=== PATIENT | female | born 1985 | race Caucasian/White ===

== ENCOUNTER 2016-10-03 20:03 | Emergency (ER) | payer MEDICAID ==
[2016-10-03 22:44] LABS: BASOPHILS 0.1 % (0-2); EOSINOPHILS 2.2 % (0-7); HEMATOCRIT 36.5 % (36.0-48.0); HEMOGLOBIN 12.2 g/dL (12-16); IMMATURE GRANULOCYTES 0.1 % (0-5); LYMPHOCYTES 27.8 % (15-50); MCH 30.9 pg (26.0-34.0); MCHC 33.4 g/dL (31.0-37.0); MCV 92.4 fL (80.0-100.0); MEAN PLATELET VOLUME 10.5 fL (7.4-10.4); MONOCYTES 4.7 % (2-11); NEUTROPHILS 65.1 % (40-80); PLATELET COUNT 311 10x3/uL (130-400); RBC 3.95 10x6/uL (4.00-5.40); RDW 14.3 % (11.5-14.5); WBC 7.4 10x3/uL (4.8-10.8)
[2016-10-03 22:50] LABS: CALC OSMOLALITY 280 mosm/kg (275-300); CALCIUM 9.6 mg/dL (8.5-10.1); CARBON DIOXIDE 26.1 mmol/L (21.0-32.0); CHLORIDE - SERUM 106 mmol/L (98-107); CREATININE - SERUM 0.7 mg/dL (0.6-1.3); GLUCOSE 94 mg/dL (74-106); POTASSIUM - SERUM 4.3 mmol/L (3.5-5.1); SODIUM 142 mmol/L (136-145); UREA NITROGEN 6 mg/dL (7-18); eGFR NON AFRICAN AMERICAN > 90 mL/min (90-120)
[2016-10-03 23:08] LABS: APPEARANCE CLEAR (CLEAR); BILIRUBIN NEGATIVE (NEGATIVE); COLOR YELLOW (YELLOW); GLUCOSE NEGATIVE (NEGATIVE); KETONE NEGATIVE (NEGATIVE); LEUKOCYTE ESTERASE NEGATIVE (NEGATIVE); NITRITE NEGATIVE (NEGATIVE); PROTEIN NEGATIVE (NEGATIVE); UROBILINOGEN NORMAL (NORMAL)
[2016-10-03 23:16] LABS: UDS - AMPHET NEGATIVE QUAL (NEGATIVE); UDS - BARB POSITIVE QUAL (NEGATIVE); UDS - BENZO POSITIVE QUAL (NEGATIVE); UDS - METH NEGATIVE QUAL (NEGATIVE); UDS - OPIATE NEGATIVE QUAL (NEGATIVE); UDS - PCP NEGATIVE QUAL (NEGATIVE); UDS - THC NEGATIVE QUAL (NEGATIVE)
[2016-10-03 23:25] LABS: UDS - COCAINE NEGATIVE QUAL (NEGATIVE)
== END 2016-10-03 23:45 | disposition home or self-care (01) ==
LOC: D.ER 20:03
PROVIDERS: Nurse Practitioner Acute Care
DX: R20.9 Unspecified disturbances of skin sensation (principal); F17.200 Nicotine dependence, unspecified, uncomplicated

== ENCOUNTER 2016-11-09 00:02 | Emergency (ER) | payer MEDICAID | END 2016-11-09 02:08 | disposition home or self-care (01) | LOC: D.ER 00:02 | DX: S32.2XXA Fracture of coccyx, initial encounter for closed fracture (principal); W19.XXXA Unspecified fall, initial encounter; Y93.89 Activity, other specified; Y92.89 Other specified places as the place of occurrence of the external cause; F17.200 Nicotine dependence, unspecified, uncomplicated ==

== ENCOUNTER 2017-06-29 16:37 | Emergency (ER) | payer MEDICAID ==
[2017-06-29 17:56] LABS: BASOPHILS 0.4 % (0-2); EOSINOPHILS 5.5 % (0-7); HEMATOCRIT 38.5 % (36.0-48.0); IMMATURE GRANULOCYTES 0.3 % (0-5); LYMPHOCYTES 37.3 % (15-50); MCH 32.4 pg (26.0-34.0); MCHC 33.8 g/dL (31.0-37.0); MEAN PLATELET VOLUME 10.5 fL (7.4-10.4); MONOCYTES 6.4 % (2-11); NEUTROPHILS 50.1 % (40-80); PLATELET COUNT 333 10x3/uL (130-400); RBC 4.01 10x6/uL (4.00-5.40); RDW 14.3 % (11.5-14.5); WBC 7.8 10x3/uL (4.8-10.8)
[2017-06-29 18:18] LABS: ALBUMIN 3.8 g/dL (3.4-5.0); ANION GAP 16.9 mmol/L (8-16); BILIRUBIN - TOTAL 0.19 mg/dL (0.2-1.3); CALCIUM 8.9 mg/dL (8.5-10.1); CARBON DIOXIDE 23.7 mmol/L (21.0-32.0); POTASSIUM - SERUM 3.6 mmol/L (3.5-5.1)
== END 2017-06-29 21:25 | disposition home or self-care (01) ==
LOC: D.ER 16:37
PROVIDERS: Emergency Medicine
DX: A08.4 Viral intestinal infection, unspecified (principal); F17.200 Nicotine dependence, unspecified, uncomplicated

== ENCOUNTER → 2017-07-15 13:30 | Outpatient (CLI) | payer OTHER | END | disposition home or self-care (01) | LOC: D.RAD 13:00 | DX: M54.5 Low back pain (principal) ==

== ENCOUNTER 2017-12-08 16:12 | Observation (INO) | payer MEDICAID ==
[~2017-12-08] VITALS: Ht 149.9 cm; Wt 50.0 kg
[2017-12-08 17:43] VITALS: BP 115/75
[2017-12-08 17:48] LABS: BASOPHILS 0.2 % (0-2); EOSINOPHILS 3.3 % (0-7); HEMATOCRIT 35.8 % (36.0-48.0); IMMATURE GRANULOCYTES 0.5 % (0-5); LYMPHOCYTES 24.6 % (15-50); MCH 32.9 pg (26.0-34.0); MCHC 33.5 g/dL (31.0-37.0); MCV 98.1 fL (80.0-100.0); MEAN PLATELET VOLUME 9.5 fL (7.4-10.4); MONOCYTES 6.5 % (2-11); NEUTROPHILS 64.9 % (40-80); PLATELET COUNT 264 10x3/uL (130-400); RBC 3.65 10x6/uL (4.00-5.40); RDW 13.4 % (11.5-14.5); WBC 12.3 10x3/uL (4.8-10.8)
[2017-12-08 17:50] LABS: UDS - AMPHET POSITIVE QUAL (NEGATIVE); UDS - BARB POSITIVE QUAL (NEGATIVE); UDS - BENZO POSITIVE QUAL (NEGATIVE); UDS - COCAINE NEGATIVE QUAL (NEGATIVE); UDS - OPIATE NEGATIVE QUAL (NEGATIVE); UDS - PCP NEGATIVE QUAL (NEGATIVE); UDS - THC NEGATIVE QUAL (NEGATIVE)
[2017-12-08 18:13] LABS: ALBUMIN 2.8 g/dL (3.4-5.0); ALKALINE PHOSPHATASE 72 U/L (46-116); ALT (SGPT) 30 U/L (10-68); CALC OSMOLALITY 280 mosm/kg (275-300); CALCIUM 7.5 mg/dL (8.5-10.1); CARBON DIOXIDE 24.2 mmol/L (21.0-32.0); CHLORIDE - SERUM 110 mmol/L (98-107); CREATININE - SERUM 0.8 mg/dL (0.6-1.3); GLUCOSE 83 mg/dL (74-106); POTASSIUM - SERUM 4.1 mmol/L (3.5-5.1); PROTEIN - SERUM 6.1 g/dL (6.4-8.2); SODIUM 142 mmol/L (136-145); UREA NITROGEN 10 mg/dL (7-18); eGFR NON AFRICAN AMERICAN 87 mL/min (90-120)
[2017-12-08 18:30] VITALS: BP 121/82
[2017-12-08 18:33] LABS: BILIRUBIN - TOTAL 0.07 mg/dL (0.2-1.3)
[2017-12-08 19:20] VITALS: BP 125/91
[2017-12-08] MEDS ORDERED: OXYCODONE-APAP1 T10 PO (22:19)
[2017-12-08] MEDS ORDERED: IBUPROFEN400 MG PO (22:19)
[2017-12-08] MEDS ORDERED: BUTALB-APAP-CA1 EACH PO (22:27)
[2017-12-08] MEDS ORDERED: NORCO 10-325 TA1 TAB PO (22:27)
[2017-12-08] MEDS ORDERED: LYRICA150 MG PO ×2 (22:28→22:29)
[2017-12-08] MEDS ORDERED: LIORESAL 10 MG10 MG PO (22:30)
[2017-12-08] MEDS ORDERED: TENORMIN25 MG PO (22:31)
[2017-12-08] MEDS ORDERED: XANAX2 MG PO (22:31)
[2017-12-08] MEDS ORDERED: CELEBREX200 MG PO (22:41)
[2017-12-08] MEDS ORDERED: ZANAFLEX4 MG PO ×2 (22:42→22:43)
[2017-12-09] VITALS: BP 107/70
[2017-12-09 01:29] VITALS: BP 107/70; Ht 149.9 cm; Wt 50.0 kg
[2017-12-09 04:00] VITALS: BP 103/64
[2017-12-09 07:44] VITALS: BP 103/64
[2017-12-09 10:58] VITALS: BP 99/56
[2017-12-09 15:38] VITALS: BP 107/65
[2017-12-09] MEDS ORDERED: BUTALB-APAP-CA1 EACH PO (16:21)
[2017-12-09] MEDS ORDERED: OXYCODONE-APAP1 T10 PO (16:21)
[2017-12-09] MEDS ORDERED: OXYCODONE-APAP1 TAB PO (16:27)
== END 2017-12-09 18:00 | disposition home or self-care (01) ==
LOC: D.ER 16:12 → D.M2 18:56 → D.EDHOLD 18:56 → OBSVTIME 18:56 → D.M2 19:45
PROVIDERS: Emergency Medicine
DX: R53.83 Other fatigue (principal); V89.2XXA Person injured in unspecified motor-vehicle accident, traffic, initial encounter; F17.213 Nicotine dependence, cigarettes, with withdrawal; M54.9 Dorsalgia, unspecified; G89.29 Other chronic pain; F15.90 Other stimulant use, unspecified, uncomplicated; F19.90 Other psychoactive substance use, unspecified, uncomplicated

== ENCOUNTER 2018-04-29 00:49 | Inpatient (IN) | payer MEDICAID ==
[2018-04-29] VITALS (19 sets, daily range): BP systolic 87–138; BP diastolic 52–100; Ht 157.5 cm; Wt 50.1 kg
[~2018-04-29] VITALS: Ht 157.5 cm; Wt 50.1 kg
[~2018-04-29 00:49] MED LIST: BUTALB-APAP-CA1 EACH PO; CELEBREX200 MG PO; IBUPROFEN400 MG PO; LIORESAL 10 MG10 MG PO; LYRICA150 MG PO; NORCO 10-325 TA1 TAB PO; OXYCODONE-APAP1 T10 PO; OXYCODONE-APAP1 TAB PO; TENORMIN25 MG PO; XANAX2 MG PO; ZANAFLEX4 MG PO
[2018-04-29 01:28] LABS: BASOPHILS 0.4 % (0-2); EOSINOPHILS 4.7 % (0-7); HEMATOCRIT 34.3 % (36.0-48.0); HEMOGLOBIN 11.4 g/dL (12-16); IMMATURE GRANULOCYTES 0.2 % (0-5); MCH 32.3 pg (26.0-34.0); MCHC 33.2 g/dL (31.0-37.0); MCV 97.2 fL (80.0-100.0); MEAN PLATELET VOLUME 9.6 fL (7.4-10.4); NEUTROPHILS 53.7 % (40-80); PLATELET COUNT 315 10x3/uL (130-400); RBC 3.53 10x6/uL (4.00-5.40); RDW 14.1 % (11.5-14.5); WBC 10.4 10x3/uL (4.8-10.8)
[2018-04-29 01:47] LABS: ALBUMIN 3.2 g/dL (3.4-5.0); ANION GAP 16.4 mmol/L (8-16); BILIRUBIN - TOTAL 0.18 mg/dL (0.2-1.3); CALCIUM 8.1 mg/dL (8.5-10.1); CARBON DIOXIDE 24.1 mmol/L (21.0-32.0); CREATININE - SERUM 1.1 mg/dL (0.6-1.3); POTASSIUM - SERUM 3.5 mmol/L (3.5-5.1); PROTEIN - SERUM 6.7 g/dL (6.4-8.2)
[2018-04-29 02:04] LABS: APPEARANCE CLEAR (CLEAR); BILIRUBIN NEGATIVE (NEGATIVE); COLOR YELLOW (YELLOW); GLUCOSE NEGATIVE (NEGATIVE); KETONE NEGATIVE (NEGATIVE); NITRITE NEGATIVE (NEGATIVE); PROTEIN NEGATIVE (NEGATIVE); SPECIFIC GRAVITY 1.015 (1.005-1.020); UROBILINOGEN NORMAL (NORMAL)
[2018-04-29 02:10] LABS: UDS - AMPHET NEGATIVE QUAL (NEGATIVE); UDS - BARB POSITIVE QUAL (NEGATIVE); UDS - BENZO NEGATIVE QUAL (NEGATIVE); UDS - COCAINE NEGATIVE QUAL (NEGATIVE); UDS - OPIATE POSITIVE QUAL (NEGATIVE); UDS - PCP NEGATIVE QUAL (NEGATIVE); UDS - THC NEGATIVE QUAL (NEGATIVE)
[2018-04-29 02:20] LABS: ACETAMINOPHEN 77.4 ug/mL (10.0-30.0)
[2018-04-29 08:52] LABS: INR 0.95 (0.85-1.17); PROTIME 12.2 SECONDS (11.6-15.0)
--- NOTE | 2018-04-29 16:11 | MORECARE ---
CASE MANAGEMENT DISCHARGE SUMMARY PATIENT: FAN PIERCE UNIT: [id number] ADM DATE: 04/29/18 AGE: 33 : 84 SEX: F ROOM/BED: D.2312 AUTHOR: ROSMERY CAMACHO PHYSICIAN: REFERRING PHYSICIAN: JENA HAMPTON MD DATE OF SERVICE: 04/29/18 Discharge Plan Patient Name: FAN PIERCE [facility] [facility] 1985 Planned Disposition: Anticipated Discharge Date: Discharge Date: Expected LOS: Initial Reviewer: [email or web address] Initial Review Date: 04/29/2018 Generated: 04/29/18 5:11 pm Comments DCP- Discharge Planning Updated by [email or web address]: Eri Farley on 04/29/18 3:[address] CM awaiting psychiatric consult. CM will continue to follow and assist as needed with discharge planning / needs. Patient Name: FAN PIERCE Page [id number] at 1611 All edits/amendments must be made on the electronic document DICTATION DATE: 04/29/18 1610 TENTMAKER: RAVINDER 04/29/18 1610 RPT#: [id number] DC DATE: STATUS: ADM IN [facility] [address] [place] [address] END OF REPORT
[2018-04-29 18:51] LABS: ALBUMIN 3.3 g/dL (3.4-5.0); ALKALINE PHOSPHATASE 110 U/L (46-116); ALT (SGPT) 38 U/L (10-68); BILIRUBIN - TOTAL 0.23 mg/dL (0.2-1.3); CALC OSMOLALITY 279 mosm/kg (275-300); CALCIUM 8.8 mg/dL (8.5-10.1); CARBON DIOXIDE 24.9 mmol/L (21.0-32.0); CHLORIDE - SERUM 103 mmol/L (98-107); CREATININE - SERUM 0.9 mg/dL (0.6-1.3); GLUCOSE 97 mg/dL (74-106); PROTEIN - SERUM 6.9 g/dL (6.4-8.2); SODIUM 139 mmol/L (136-145); UREA NITROGEN 19 mg/dL (7-18); eGFR NON AFRICAN AMERICAN 76 mL/min (90-120)
[2018-04-29 18:55] LABS: POTASSIUM - SERUM 4.5 mmol/L (3.5-5.1)
[2018-04-29 19:21] LABS: PROTIME 12.7 SECONDS (11.6-15.0)
[2018-04-30] VITALS (15 sets, daily range): BP systolic 98–142; BP diastolic 56–90
[2018-04-30 03:25] LABS: HEMATOCRIT 37.7 % (36.0-48.0); HEMOGLOBIN 12.4 g/dL (12-16); MCH 32.8 pg (26.0-34.0); MCHC 32.9 g/dL (31.0-37.0); MCV 99.7 fL (80.0-100.0); MEAN PLATELET VOLUME 9.6 fL (7.4-10.4); PLATELET COUNT 367 10x3/uL (130-400); RBC 3.78 10x6/uL (4.00-5.40); RDW 14.2 % (11.5-14.5); WBC 24.3 10x3/uL (4.8-10.8)
[2018-04-30 03:30] LABS: INR 0.95 (0.85-1.17); PROTIME 12.2 SECONDS (11.6-15.0)
[2018-04-30 03:38] LABS: ALBUMIN 3.4 g/dL (3.4-5.0); ALKALINE PHOSPHATASE 114 U/L (46-116); ALT (SGPT) 36 U/L (10-68); BILIRUBIN - TOTAL 0.24 mg/dL (0.2-1.3); CALC OSMOLALITY 275 mosm/kg (275-300); CALCIUM 8.9 mg/dL (8.5-10.1); CARBON DIOXIDE 21.1 mmol/L (21.0-32.0); CHLORIDE - SERUM 101 mmol/L (98-107); CREATININE - SERUM 0.7 mg/dL (0.6-1.3); POTASSIUM - SERUM 4.2 mmol/L (3.5-5.1); PROTEIN - SERUM 7.5 g/dL (6.4-8.2); SODIUM 136 mmol/L (136-145); UREA NITROGEN 16 mg/dL (7-18); eGFR NON AFRICAN AMERICAN > 90 mL/min (90-120)
[2018-04-30 03:43] LABS: GLUCOSE 149 mg/dL (74-106)
[2018-04-30 03:54] LABS: EOSINOPHILS 2 % (0-7); LYMPHOCYTES 14 % (15-50); MONOCYTES 7 % (2-11); NEUTROPHILS 77 % (40-80)
[2018-04-30 03:55] LABS: PLATELET ESTIMATE NORMAL
[2018-04-30 07:39] LABS: BASOPHILS 0.1 % (0-2); EOSINOPHILS 0.2 % (0-7); HEMATOCRIT 35.8 % (36.0-48.0); IMMATURE GRANULOCYTES 0.4 % (0-5); LYMPHOCYTES 6.6 % (15-50); MCH 33.2 pg (26.0-34.0); MCHC 33.5 g/dL (31.0-37.0); MCV 99.2 fL (80.0-100.0); MEAN PLATELET VOLUME 9.9 fL (7.4-10.4); MONOCYTES 5.1 % (2-11); NEUTROPHILS 87.6 % (40-80); PLATELET COUNT 317 10x3/uL (130-400); RBC 3.61 10x6/uL (4.00-5.40); WBC 18.3 10x3/uL (4.8-10.8)
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
--- NOTE | 2018-04-30 13:41 | MORECARE ---
CASE MANAGEMENT DISCHARGE SUMMARY PATIENT: FAN PIERCE UNIT: [id number] ADM DATE: 04/29/18 AGE: 33 : [birth year] SEX: F ROOM/BED: D.2312 AUTHOR: ROSMERY CAMACHO PHYSICIAN: REFERRING PHYSICIAN: JENA HAMPTON MD DATE OF SERVICE: 04/30/18 Discharge Plan Patient Name: FAN PIERCE Facility: [facility]:[place] : 1985 Planned Disposition: Anticipated Discharge Date: Discharge Date: Expected LOS: Initial Reviewer: [email or web address] Initial Review Date: 04/29/2018 Generated: 04/30/18 2:40 pm Comments DCP- Discharge Planning Updated by [email or web address]: Eri Farley on 04/29/18 3:[address] CM awaiting psychiatric consult. CM will continue to follow and assist as needed with discharge planning / needs. External Providers External Provider: [facility] Next Contact Date: Service Request Date: Service Type: Resolution: Reviewer: Comments: Last DP export: 04/29/18 3:11 pm Patient Name: FAN PIERCE Page [id number] at 1341 All edits/amendments must be made on the electronic document DICTATION DATE: 04/30/18 1340 BEATER OPERATOR: RAVINDER 04/30/18 1340 RPT#: [id number] DC DATE: STATUS: ADM IN [facility] [address] [place] [address] END OF REPORT
--- NOTE | 2018-04-30 13:57 | MORECARE ---
CASE MANAGEMENT DISCHARGE SUMMARY PATIENT: FAN PIERCE UNIT: [id number] ADM DATE: 04/29/18 AGE: 33 : [birth year] SEX: F ROOM/BED: D.2312 AUTHOR: ROSMERY CAMACHO PHYSICIAN: REFERRING PHYSICIAN: JENA HAMPTON MD DATE OF SERVICE: 04/30/18 Discharge Plan Patient Name: FAN PIERCE [facility] [facility] 1985 Planned Disposition: Anticipated Discharge Date: Discharge Date: Expected LOS: Initial Reviewer: [email or web address] Initial Review Date: 04/29/2018 Generated: 04/30/18 2:57 pm Comments DCP- Discharge Planning Updated by [email or web address]: Eri Farley on 04/30/18 12:[address] Patient Name: FAN PIERCE Admission Status: ER Accout number: [id number] Admission Date: 04-29-2018 : 1985 Admission Diagnosis: Attending: JENA HAMPTON Current LOS: 1 Anticipated DC Date: Planned Disposition: Primary Insurance: [employer] Discharge Planning Comments: CM notified patient being placed on 72hr hold. Psychiatric evaluation completed recommended inpatient psychiatric facility placement. CM notified transfer center and faxed records for placement. CM will continue to follow and assist as needed with discharge planning / needs. Boiler Tube Blower: Eri Farley DCP- Discharge Planning Updated by [email or web address]: Eri Farley on 04/29/18 3:[address] CM awaiting psychiatric consult. CM will continue to follow and assist as needed with discharge planning / needs. Last DP export: 04/30/18 12:41 pm Patient Name: FAN PIERCE Page 60077 at 1357 All edits/amendments must be made on the electronic document DICTATION DATE: 04/30/18 1356 FRESH FOOD[employer] CAKE DECORATOR: RAVINDER 04/30/18 1356 RPT#: [id number] DC DATE: STATUS: ADM IN [facility] [address] [place] [address] END OF REPORT
--- NOTE | 2018-04-30 14:04 | MORECARE ---
CASE MANAGEMENT DISCHARGE SUMMARY PATIENT: FAN PIERCE UNIT: [id number] ADM DATE: 04/29/18 AGE: 33 : [birth year] SEX: F ROOM/BED: D.2312 AUTHOR: ROSMERY CAMACHO PHYSICIAN: REFERRING PHYSICIAN: JENA HAMPTON MD DATE OF SERVICE: 04/30/18 Discharge Plan Patient Name: FAN PIERCE [facility] [facility] 1985 Planned Disposition: Psych facility Anticipated Discharge Date: Discharge Date: Expected LOS: Initial Reviewer: [email or web address] Initial Review Date: 04/29/2018 Generated: 04/30/18 3:04 pm Comments DCP- Discharge Planning Updated by [email or web address]: Eri Farley on 04/30/18 12:[address] Patient Name: FAN PIERCE Admission Status: ER Accout number: [id number] Admission Date: 04-29-2018 : 1985 Admission Diagnosis: Attending: JENA HAMPTON Current LOS: 1 Anticipated DC Date: Planned Disposition: [facility] Discharge Planning Comments: CM notified patient being placed on 72hr hold. Psychiatric evaluation completed recommended inpatient psychiatric facility placement. CM notified transfer center and faxed records for placement. CM will continue to follow and assist as needed with discharge planning / needs. Logistics Lead: Eri Farley DCP- Discharge Planning Updated by [email or web address]: Eri Farley on 04/29/18 3:[address] CM awaiting psychiatric consult. CM will continue to follow and assist as needed with discharge planning / needs. Last DP export: 04/30/18 12:57 pm Patient Name: FAN PIERCE Page [id number] at 1404 All edits/amendments must be made on the electronic document DICTATION DATE: 04/30/181403 APPEALS RN: RAVINDER 04/30/18 140 RPT#: [id number] DC DATE: STATUS: ADM IN [facility] [address] [place] [address] END OF REPORT
[2018-05-01 03:00] VITALS: BP 119/78
[2018-05-01 07:00] VITALS: BP 125/74
--- NOTE | 2018-05-03 09:50 | MORECARE ---
CASE MANAGEMENT DISCHARGE SUMMARY PATIENT: FAN PIERCE UNIT: [id number] ADM DATE: 04/29/18 AGE: 33 : [birth year] SEX: F ROOM/BED: D.2305 AUTHOR: ROSMERY CAMACHO PHYSICIAN: REFERRING PHYSICIAN: JENA HAMPTON MD DATE OF SERVICE: 05/03/18 Discharge Plan Patient Name: FAN PIERCE [facility] [facility] 1985 Planned Disposition: Psych facility Anticipated Discharge Date: Discharge Date: 05/01/2018 Expected LOS: Initial Reviewer: [email or web address] Initial Review Date: 04/29/2018 Generated: 05/03/18 10:50 am Comments DCP- Discharge Planning Updated by [email or web address]: Eri Farley on 04/30/18 12:[address] Patient Name: FAN PIERCE Admission Status: ER Accout number: [id number] Admission Date: 04-29-2018 : 1985 Admission Diagnosis: Attending: JENA HAMPTON Current LOS: 1 Anticipated DC Date: Planned Disposition: Primary [facility] [employer] [facility] Discharge Planning Comments: CM notified patient being placed on 72hr hold. Psychiatric evaluation completed recommended inpatient psychiatric facility placement. CM notified transfer center and faxed records for placement. CM will continue to follow and assist as needed with discharge planning / needs. Incubator Operator: Eri Farley DCP- Discharge Planning Updated by [email or web address]: Eri Farley on 04/29/18 3:[address] CM awaiting psychiatric consult. CM will continue to follow and assist as needed with discharge planning / needs. Last DP export: 04/30/18 1:04 pm Patient Name: FAN PIERCE Page [id number] at 0950 All edits/amendments must be made on the electronic document DICTATION DATE: 05/03/18948 PHARMACIST: RAVINDER 05/03/18948 RPT#: [id number] DC DATE:05/01/18 STATUS: DIS IN [facility] [address] [place] [address] END OF REPORT
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
== END 2018-05-01 10:20 | disposition short-term general hospital (02) | DRG 917 ==
LOC: D.ER 00:49 → D.ICU 02:56
PROVIDERS: Family Medicine; Internal Medicine Pulmonary Disease; ADMIT Family Medicine
DX: T39.1X2A Poisoning by 4-Aminophenol derivatives, intentional self-harm, initial encounter (principal); R40.2123 Coma scale, eyes open, to pain, at hospital admission; R40.2213 Coma scale, best verbal response, none, at hospital admission; R45.851 Suicidal ideations; F11.20 Opioid dependence, uncomplicated; I95.2 Hypotension due to drugs; T42.4X5A Adverse effect of benzodiazepines, initial encounter; F32.9 Major depressive disorder, single episode, unspecified; G43.909 Migraine, unspecified, not intractable, without status migrainosus; F17.200 Nicotine dependence, unspecified, uncomplicated; R40.2363 Coma scale, best motor response, obeys commands, at hospital admission; R40.2143 Coma scale, eyes open, spontaneous, at hospital admission; R40.2243 Coma scale, best verbal response, confused conversation, at hospital admission; R40.2353 Coma scale, best motor response, localizes pain, at hospital admission

== ENCOUNTER 2018-06-19 21:12 | Emergency (ER) | payer MEDICAID ==
[~2018-06-19] VITALS: Ht 157.5 cm; Wt 53.2 kg
[2018-06-19 21:18] VITALS: Ht 157.5 cm; Wt 53.2 kg
[2018-06-19] MEDS ORDERED: AMITRIPTYLINE150 MG (21:22)
[2018-06-19] MEDS ORDERED: ZOLOFT25 MG (21:22)
[2018-06-19] MEDS ORDERED: ATARAX 25 MG TA25 MG (21:22)
[2018-06-19] MEDS ORDERED: MORPHINE SULFAT30 M4 (21:23)
[2018-06-19] MEDS ORDERED: CHANTIX 1 MG TAB1 MG PO (21:23)
[2018-06-19] MEDS ORDERED: RELPAX20 MG (21:23)
[2018-06-19] MEDS ORDERED: TORADOL10 MG PO (21:55)
[2018-06-19 22:35] VITALS: BP 116/86
== END 2018-06-19 22:34 | disposition home or self-care (01) ==
LOC: D.ER 21:12
DX: S63.613A Unspecified sprain of left middle finger, initial encounter (principal); X58.XXXA Exposure to other specified factors, initial encounter; Y93.89 Activity, other specified; Y92.89 Other specified places as the place of occurrence of the external cause

== ENCOUNTER 2019-09-17 17:50 | Emergency (ER) | payer MEDICAID ==
[~2019-09-17 17:50] MED LIST changes: +AMITRIPTYLINE150 MG; +ATARAX 25 MG TA25 MG; +CHANTIX 1 MG TAB1 MG PO; +MORPHINE SULFAT30 M4; +RELPAX20 MG; +TORADOL10 MG PO; +ZOLOFT25 MG
[2019-09-17 17:54] VITALS: Ht 157.5 cm
[2019-09-17 19:01] LABS: BASOPHILS 0.2 % (0-2); EOSINOPHILS 0.6 % (0-7); HEMATOCRIT 41.5 % (36.0-48.0); HEMOGLOBIN 13.8 g/dL (12-16); IMMATURE GRANULOCYTES 0.2 % (0-5); LYMPHOCYTES 21.9 % (15-50); MCH 31.9 pg (26.0-34.0); MCHC 33.3 g/dL (31.0-37.0); MCV 96.1 fL (80.0-100.0); MEAN PLATELET VOLUME 9.4 fL (7.4-10.4); MONOCYTES 7.1 % (2-11); RBC 4.32 10x6/uL (4.00-5.40); RDW 15.2 % (11.5-14.5); WBC 14.3 10x3/uL (4.8-10.8)
[2019-09-17 19:02] LABS: PLATELET COUNT 441 10x3/uL (130-400)
[2019-09-17 19:05] LABS: BILIRUBIN NEGATIVE (NEGATIVE); GLUCOSE NEGATIVE (NEGATIVE); KETONE NEGATIVE (NEGATIVE); NITRITE POSITIVE (NEGATIVE); SPECIFIC GRAVITY 1.015 (1.005-1.020); UROBILINOGEN NORMAL (NORMAL)
[2019-09-17 19:08] LABS: UDS - AMPHET NEGATIVE QUAL (NEGATIVE); UDS - BARB POSITIVE QUAL (NEGATIVE); UDS - BENZO NEGATIVE QUAL (NEGATIVE); UDS - COCAINE NEGATIVE QUAL (NEGATIVE); UDS - OPIATE NEGATIVE QUAL (NEGATIVE); UDS - PCP NEGATIVE QUAL (NEGATIVE); UDS - THC POSITIVE QUAL (NEGATIVE)
[2019-09-17 19:11] LABS: BACTERIA MANY /hpf (NEGATIVE); EPITHELIAL CELLS 0-5 /hpf (0-5); RED CELLS - URINE NONE SEEN /hpf (0-5); WHITE CELLS - URINE 0-5 /hpf (NEGATIVE)
[2019-09-17 19:13] LABS: CALCIUM 8.4 mg/dL (8.5-10.1); CARBON DIOXIDE 26.1 mmol/L (21.0-32.0); CREATININE - SERUM 1.1 mg/dL (0.6-1.3); POTASSIUM - SERUM 4.1 mmol/L (3.5-5.1)
[2019-09-17 19:18] LABS: ACETAMINOPHEN 0.3 ug/mL (10.0-30.0); ALBUMIN 4.2 g/dL (3.4-5.0); BILIRUBIN - TOTAL 0.24 mg/dL (0.2-1.3); MAGNESIUM - SERUM 1.9 mg/dL (1.8-2.4); PROTEIN - SERUM 8.5 g/dL (6.4-8.2)
[2019-09-17] MEDS ORDERED: KLONOPIN0.5 MG PO (21:14)
[2019-09-17 23:45] VITALS: BP 102/70
== END 2019-09-17 23:46 | disposition home or self-care (01) ==
LOC: D.ER 17:50
PROVIDERS: Emergency Medicine; Family Medicine
DX: T76.21XA Adult sexual abuse, suspected, initial encounter (principal); S00.93XA Contusion of unspecified part of head, initial encounter; S80.02XA Contusion of left knee, initial encounter; S80.01XA Contusion of right knee, initial encounter

== ENCOUNTER 2019-10-12 15:35 | Emergency (ER) | payer MEDICAID ==
[~2019-10-12] VITALS: Ht 157.5 cm; Wt 54.4 kg
[~2019-10-12 15:35] MED LIST changes: +KLONOPIN0.5 MG PO
[2019-10-12 15:52] VITALS: BP 130/77; Ht 157.5 cm; Wt 54.4 kg
[2019-10-12] MEDS ORDERED: NAPROSYN500 MG PO (17:19)
== END 2019-10-12 18:26 | disposition home or self-care (01) ==
LOC: D.ER 15:35
DX: S61.219A Laceration without foreign body of unspecified finger without damage to nail, initial encounter (principal); W26.0XXA Contact with knife, initial encounter; Y93.9 Activity, unspecified; Y92.9 Unspecified place or not applicable

== ENCOUNTER 2019-11-21 11:57 | Emergency (ER) | payer MEDICAID ==
[~2019-11-21] VITALS: Ht 157.5 cm; Wt 54.5 kg
[~2019-11-21 11:57] MED LIST changes: +NAPROSYN500 MG PO
[2019-11-21 12:01] VITALS: BP 173/79; Ht 157.5 cm; Wt 54.5 kg
[2019-11-21 12:40] LABS: BASOPHILS 0.2 % (0-2); EOSINOPHILS 0.7 % (0-7); HEMATOCRIT 39.2 % (36.0-48.0); HEMOGLOBIN 13.1 g/dL (12-16); IMMATURE GRANULOCYTES 0.2 % (0-5); LYMPHOCYTES 13.1 % (15-50); MCH 32.6 pg (26.0-34.0); MCHC 33.4 g/dL (31.0-37.0); MCV 97.5 fL (80.0-100.0); MEAN PLATELET VOLUME 9.2 fL (7.4-10.4); MONOCYTES 6.4 % (2-11); NEUTROPHILS 79.4 % (40-80); PLATELET COUNT 373 10x3/uL (130-400); RBC 4.02 10x6/uL (4.00-5.40); RDW 13.8 % (11.5-14.5); WBC 12.2 10x3/uL (4.8-10.8)
[2019-11-21 12:45] LABS: BILIRUBIN NEGATIVE (NEGATIVE); KETONE NEGATIVE (NEGATIVE); NITRITE NEGATIVE (NEGATIVE); UROBILINOGEN NORMAL (NORMAL)
[2019-11-21 12:48] LABS: ANION GAP 13.1 mmol/L (8-16); CALCIUM 9.6 mg/dL (8.5-10.1); CARBON DIOXIDE 26.8 mmol/L (21.0-32.0); CREATININE - SERUM 1.2 mg/dL (0.6-1.3); POTASSIUM - SERUM 3.9 mmol/L (3.5-5.1)
[2019-11-21 12:53] LABS: ALBUMIN 4.2 g/dL (3.4-5.0); BILIRUBIN - TOTAL 0.25 mg/dL (0.2-1.3); PROTEIN - SERUM 7.6 g/dL (6.4-8.2)
== END 2019-11-21 15:15 | disposition left against medical advice (07) ==
LOC: D.ER 11:57
PROVIDERS: Emergency Medicine
DX: R73.09 Other abnormal glucose (principal)